=== PATIENT | male | born 1980 | race Caucasian/White ===

== ENCOUNTER 2018-08-28 11:46 | Emergency (ER) | payer OTHER ==
[~2018-08-28] VITALS: Ht 180.3 cm; Wt 82.0 kg
[2018-08-28 12:21] VITALS: BP 127/79
[2018-08-28] MEDS ORDERED: IBUP-1623 PO (12:23)
[2018-08-28] MEDS ORDERED: ACET325T14 PO (12:23)
== END 2018-08-28 13:11 | disposition home or self-care (01) ==
LOC: ED 13:05
DX: G89.11 Acute pain due to trauma (principal); M25.522 Pain in left elbow; X58.XXXA Exposure to other specified factors, initial encounter; Y93.89 Activity, other specified; Y92.69 Other specified industrial and construction area as the place of occurrence of the external cause; Y99.0 Civilian activity done for income or pay
CPT/HCPCS: 99284